=== PATIENT | male | born 1955 | race Caucasian/White ===

== ENCOUNTER → 2020-12-11 | Outpatient (CLI) | payer OTHER ==
[~2020-12-11] MED LIST: E-Z-GAS II EFFERVESCENT PACKET (SODIUM BICARB./CITRIC ACID/SIMETHICONE) As Ordered ONE; E-Z-HD 98% w/w 340GM SUSP BTL As Ordered ONE; E-Z-PAQUE 96% w/w SUSP 176GM BTL As Ordered ONE; ISOVUE-370 76% 100ML VIAL As Ordered ONE
--- NOTE | 2020-12-11 10:30 | REPVR ---
PROCEDURE INFORMATION: Exam: CT Neck With Contrast Exam date and time: 12/11/2020 9:51 AM Age: 65 years old Clinical indication: Other: Dysphonia; Additional info: Dysphonia- x-ray after TECHNIQUE: Imaging protocol: Computed tomography images of the neck with contrast. Radiation optimization: All CT scans at this facility use at least one of these dose optimization techniques: automated exposure control; mA and/or kV adjustment per patient size (includes targeted exams where dose is matched to clinical indication); or iterative reconstruction. Contrast material: ISOVUE 370; Contrast volume: 75 ml; Contrast route: INTRAVENOUS (IV); COMPARISON: No relevant prior studies available. FINDINGS: Paranasal sinuses: There is poor distention of the left piriformis sinus. The possibility of a focal mass of the left supraglottic wall measuring about 5 x 12 mm on axial image 47 and more superiorly on coronal image 37 is questioned and direct inspection is recommended. Nasopharynx: Unremarkable. Oropharynx: Unremarkable. No significant tonsillar enlargement. Hypopharynx: Unremarkable. Larynx: See "Paranasal sinuses" finding. Retropharyngeal space: Unremarkable. Submandibular/Parotid glands: Normal. Glands are normal in size. Thyroid: The thyroid gland is normal. Lymph nodes: There are numerous prominent but non-pathologic lymph nodes in the neck. There are no nodes of pathologic dimensions. Trachea: Visualized trachea is unremarkable. Lungs: The visualized portions of the lung apices are normal. The visualized portions of the lung apices are normal. Bones/joints: A right convex spinal curve is observed.There is a flattening of the normal lordosis, related to positioning or spasm. The spine demonstrates moderate degenerative changes at multiple levels. There is compromise of the left neural foramen at C3-C4 and at C4-C5 with bilateral foraminal compromise at C5-C6. Vasculature: The range of this study has not extended below the aortic arch to completely evaluate for left vagal or recurrent laryngeal nerve compression. The right side is included and demonstrates no impingement. Soft tissues: There is no evidence of mass involving the cords. There is mild calcification of the left internal carotid origin with less than 50% compromise of the lumen. There is mild calcification of the right internal carotid origin with less than 50% compromise of the lumen. IMPRESSION: 1. There is poor distention of the left piriformis sinus. The possibility of a focal mass of the left supraglottic wall measuring about 5 x 12 mm on axial image 47 and more superiorly on coronal image 37 is questioned and direct inspection is recommended. 2. There is no evidence of mass involving the cords. 3. A right convex spinal curve is observed.There is a flattening of the normal lordosis, related to positioning or spasm. 4. The spine demonstrates moderate degenerative changes at multiple levels. There is compromise of the left neural foramen at C3-C4 and at C4-C5 with bilateral foraminal compromise at C5-C6. 5. The range of this study has not extended below the aortic arch to completely evaluate for left vagal or recurrent laryngeal nerve compression. The right side is included and demonstrates no impingement. 6. There is mild calcification of the left internal carotid origin with less than 50% compromise of the lumen. 7. There is mild calcification of the right internal carotid origin with less than 50% compromise of the lumen. 8. There are codominant vertebral arteries with no stenosis or dissection. Electronically signed by: Pascual Crandall On 12/11/2020 10:30:12 AM
--- NOTE | 2020-12-11 15:28 | REP ---
INDICATION: DYSPHONIA- CT FIRST. COMPARISON: None TECHNIQUE: This procedure was performed by Mary Perrin, [facility], under the direct supervision of Dr. Mak. Images were reviewed with Dr. Mak prior to dictation. Liquid barium and gas producing crystals were given in the erect position, as well as liquid barium in the prone oblique position in order to perform a double contrast esophagram examination. FINDINGS: A single view PA chest x-ray is submitted as a weatherseal technician film. The superior mediastinal structures are midline. The heart size is within normal limits. The lungs are clear. The oral and pharyngeal stages of deglutition were unremarkable. Hyperplasia of the cricopharyngeal muscle is visualized. Esophageal transport is prompt and efficient and there is no evidence of esophagitis, stricture, or mucosal ring. There is no evidence of a hiatal hernia. No gastroesophageal reflux was visualized on today's exam. IMPRESSION: Cricopharyngeal hyperplasia, otherwise unremarkable esophagram. 0.5 minutes of fluoroscopy time was utilized for this procedure. Some fluoroscopic images are performed with last image hold technology. These images require no additional radiation. <Electronically signed by Mary Perrin > 12/11/20 [id number] <Electronically signed by Cesar Mak > 12/11/20 [id number]
== END ==
LOC: M RAD 09:23
PROVIDERS: ATTEND Otolaryngology
DX: R49.0 Dysphonia (principal); K22.8 Other specified diseases of esophagus
CPT/HCPCS: 70491; 74220; Q9967

== ENCOUNTER → 2021-01-25 | Outpatient (CLI) | payer OTHER ==
--- NOTE | 2021-01-25 11:00 | REP ---
INDICATION: COUGH / NICOTINE DEPEND. COMPARISON: None. TECHNIQUE: Axial noncontrast images from the thoracic inlet to the upper abdomen using low-dose lung screening technique (LDCT). As per the protocol only lung window images were sent to the read station for interpretation. FINDINGS: In the lateral basal segment of the left lower lobe there is a 6 mm sized pleural base nodule. No other abnormal nodules, masses, or opacities are present. Grossly, the mediastinum and pulmonary savanna are within normal limits. Grossly, the imaged upper abdomen and imaged osseous structures are within normal limits. IMPRESSION: 6 mm sized pulmonary nodule in the left lower lobe as described above. According to the revised Fleischner society criteria this represents a lung rads category 3 nodule for which a six-month follow-up CT is recommended. <Electronically signed by Meño Mac > 01/25/21 [id number]
--- NOTE | 2021-01-25 11:41 | PFTRPT ---
Site: [facility], [address] [place] [address], [id number] ID: [id number] Name: ELA CASTANO Visit Date: 01/25/2021 Second ID: [id number] Referring Doctor: NANCY Cosme Marcus, M Reviewing Doctor: Stone Vilchis MD Gerentological Physiotherapist: Padmini FISHER RRT Age: 65 : 1955 Sex: Male Race: Height: 70.00 Inches Weight: 170.00 Lbs BSA: 1.95 Order IDs: [id number] Requested Test(s): <RESP-PFT.PFT B/A> Diagnosis: R05 test meet the ATS standards for acceptability and repeatability. Pt was given four puffs of albuterol for post bronchodilator. Review Status: Not Reviewed Pre-Bronch Post-Bronch Pred Actual %Pred Actual %Chng SPIROMETRY FVC (L) 4.63 3.57 77 3.61 1 FEV1 (L) 3.46 2.77 80 2.91 4 FEV1/FVC (%) 75 78 103 81 3 FEF 25% (L/sec) 7.00 7.09 101 7.92 11 FEF 50% (L/sec) 4.10 4.33 105 4.95 14 FEF 75% (L/sec) 1.26 0.76 60 1.03 35 FEF 25-75% (L/sec) 2.76 2.42 87 3.03 25 FEF Max (L/sec) 8.89 8.01 90 9.03 12 FIVC (L) 3.57 3.64 1 FIF 50% (L/sec) 4.61 4.39 95 4.59 4 FIF Max (L/sec) 4.90 5.29 7 MVV (L/min) 135 122 90 Expiratory Time (sec) 6.63 6.50 -1 Back Extrap Vol (L) 0.15 0.12 -23 Time To FEFmax (sec) 0.133 0.088 -33 LUNG VOLUMES SVC (L) 4.68 3.66 78 IC (L) 3.33 3.09 92 ERV (L) 1.35 0.57 42 TGV (L) 3.68 3.53 96 RV (Pleth) (L) 2.33 2.96 127 TLC (Pleth) (L) 7.01 6.62 94 RV/TLC (Pleth) (%) 34 45 131 DIFFUSION DLCOunc (ml/min/mmHg) 27.46 24.19 88 DLCOcor (ml/min/mmHg) 27.46 24.32 88 DL/VA (ml/min/mmHg/L) 3.92 4.31 110 VA (L) 7.01 5.64 80 BHT (sec) 9.89 IVC (L) 3.65 TLC (SB) (L) 5.79 AIRWAYS RESISTANCE Raw (cmH2O/L/s) 1.45 0.61 42 Gaw (L/s/cmH2O) 1.03 1.65 160 sRaw (cmH2O*s) 4.76 2.18 45 sGaw (1/cmH2O*s) 0.20 0.46 231 BLOOD GASES Hgb (gm/dL) 14.4
== END ==
LOC: M CARPUL 10:25
PROVIDERS: ATTEND Physician Assistant
DX: Z12.2 Encounter for screening for malignant neoplasm of respiratory organs (principal); R91.8 Other nonspecific abnormal finding of lung field; R05 Cough; Z87.891 Personal history of nicotine dependence

== ENCOUNTER → 2021-02-20 | Outpatient (CLI) | payer OTHER ==
[~2021-02-20] MED LIST changes: +AKWASOL; +CARA1TAB6 PO; +D31000TA2 PO; -E-Z-GAS II EFFERVESCENT PACKET (SODIUM BICARB./CITRIC ACID/SIMETHICONE) As Ordered ONE; -E-Z-HD 98% w/w 340GM SUSP BTL As Ordered ONE; -E-Z-PAQUE 96% w/w SUSP 176GM BTL As Ordered ONE; +FAMO1TAB11 PO; +FENO48TA8; -ISOVUE-370 76% 100ML VIAL As Ordered ONE; +LORA-930; +MELO15TA28; +METH-1164; +MULT-90 PO; +PANT20TA6; +REST0.05
--- NOTE | 2021-02-24 16:36 | ECGEPIP ---
[facility] Test Date: 2021-02-20 Pat Name: ELA CASTANO Department: Room: - Gender: Male Senior Project Coordinator: artemio : 1955 Requested By: REX Chin Order Number: [id number] Reading MD: Jose Alfredo Vale Measurements Intervals [place] Rate: 84 P: 55 [place]: 208 QRS: -22 QRSD: 84 T: 41 QT: 360 QTc: 425 Interpretive Statements Normal sinus rhythm BORDERLINE LEFT AXIS DEVIATION No prior tracing in the system Electronically Signed on 02-24-2021 16:35:42 EDT by Jose Alfredo Vale
== END ==
LOC: M EKG 15:21
PROVIDERS: ATTEND Anesthesiology
DX: Z01.818 Encounter for other preprocedural examination (principal); R94.31 Abnormal electrocardiogram [ECG] [EKG]; E78.5 Hyperlipidemia, unspecified; M19.90 Unspecified osteoarthritis, unspecified site
CPT/HCPCS: 93005; G0463

== ENCOUNTER 2021-02-27 08:04 | Day surgery (SDC) | payer OTHER ==
[~2021-02-27] VITALS: Ht 177.8 cm; Wt 84.4 kg
[~2021-02-27 08:04] MED LIST changes: -CARA1TAB6 PO; +LIDOCAINE 1% MDV 20ML VIAL SQ PRN; +LR 1,000 ML IV ONE
[2021-02-27] MEDS ORDERED: CARA1TAB6 PO (08:19)
[2021-02-27] MEDS ORDERED: fentaNYL 100 MCG/2 ML INJECTION (J3010) As Ordered ONE (08:25)
[2021-02-27] MEDS ORDERED: MIDAZOLAM INJ 2MG/2ML VIAL (J2250 PER 1MG) As Ordered ONE (08:26)
[2021-02-27] MEDS ORDERED: dexameTHASONE 4 MG/ML 1ML VIAL (J1100 PER 1MG) As Ordered ONE (08:26)
[2021-02-27] MEDS ORDERED: propofoL 200 MG/20 ML VIAL As Ordered ONE (08:26)
[2021-02-27] MEDS ORDERED: ROCURONIUM BROMIDE 50 MG/5 ML VIAL As Ordered ONE (08:26)
[2021-02-27] MEDS ORDERED: LIDOCAINE 2% 100MG/5ML SDV (FOR ANES.) As Ordered ONE (08:26)
[2021-02-27] MEDS ORDERED: ONDANSETRON 4MG/2ML VIAL As Ordered ONE (08:26)
[2021-02-27] MEDS ORDERED: METHYLENE BLUE 0.5% (5MG/ML) 10 ML AMP (PROVAYBLUE) As Ordered ONE (10:14)
[2021-02-27] MEDS ORDERED: LIDOCAINE W/EPINEPHRINE 1% 20ML VIAL As Ordered ONE (10:15)
[2021-02-27] MEDS ORDERED: OXYMETAZOLINE 0.05% NASAL SPRAY (AFRIN) As Ordered ONE (10:15)
[2021-02-27] MEDS ORDERED: SUGAMMADEX SODIUM 500 MG/5 ML VIAL (BRIDION) As Ordered ONE (11:04)
[2021-02-27] MEDS ORDERED: ePHEDrine SULFATE 25 MG/5 ML(5MG/ML) SYRINGE As Ordered ONE (11:24)
[2021-02-27] MEDS ORDERED: METOCLOPRAMIDE INJ 10MG/2ML VIAL (J2765 PER 1) IV PRN (12:25)
[2021-02-27] MEDS ORDERED: fentaNYL 100 MCG/2 ML INJECTION (J3010) IV PRN (12:25)
[2021-02-27] MEDS ORDERED: ONDANSETRON 4MG/2ML VIAL IV PRN (12:25)
[2021-02-27] MEDS ORDERED: LR 1,000 ML IV SCH ×2 (12:25)
[2021-02-27] MEDS ORDERED: oxyCODONE 5MG TAB PO PRN (12:25)
[2021-02-27 13:10] VITALS: BP 157/83
--- NOTE | 2021-02-27 18:05 | RO ---
OPERATIVE NOTE DATE OF OPERATION: 02/27/2021 PREOPERATIVE DIAGNOSIS: Cough, dysphonia and fullness of the left piriform sinus. POSTOPERATIVE DIAGNOSIS: Cough, dysphonia and fullness of the left piriform sinus. PROCEDURE PERFORMED: Direct suspension microlaryngoscopy with biopsy of the left piriform sinus. 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 CT of neck revealed fullness of the left piriform sinus. Management options including surgery listed above have been discussed. The patient understood and consented to the procedure. OR NARRATION: The patient was identified in preholding and brought to the operating room in stable condition. In supine position on the operating table, the patient received general anesthesia followed by orotracheal intubation without incident. The patient was prepped and draped in the usual fashion for the procedure. Bimanual palpation of the oral cavity, oral tongue, base of tongue, lateral posterior pharyngeal wall showed no evidence of discrete mass lesions. The upper alveolus was protected using the dental guard. The Dedo-Pilling laryngoscope was the introduced to allow inspection of the mucosa of the oral cavity, oropharynx, oral tongue, base of tongue, lateral and posterior pharyngeal wall, supraglottis and hypopharynx. There was no evidence of mucosal lesion seen. Redundant mucosa was noted in the left piriform sinus. Both vocal cords appeared to be free of recurrent polyp. The Dedo-Pilling laryngoscope was suspended on the Crenshaw stand to allow visualization of the left piriform sinus. Biopsies were taken from the left piriform sinus. Hemostasis was achieved using pledgets soaked in Afrin solution. At the end of the procedure, sponge and instrument counts were correct. No complications were encountered. Estimated blood loss was less than 1 mL. General anesthesia was reversed and the patient was extubated and brought to the recovery room in stable condition.
== END 2021-02-27 13:22 | disposition home or self-care (01) ==
LOC: M SDC 08:04
PROVIDERS: ATTEND Otolaryngology
DX: J34.89 Other specified disorders of nose and nasal sinuses (principal); R05.9 Cough, unspecified; R49.0 Dysphonia; E78.9 Disorder of lipoprotein metabolism, unspecified; K21.9 Gastro-esophageal reflux disease without esophagitis; K57.90 Diverticulosis of intestine, part unspecified, without perforation or abscess without bleeding; M19.90 Unspecified osteoarthritis, unspecified site; Z91.041 Radiographic dye allergy status; Z91.030 Bee allergy status; Z88.8 Allergy status to other drugs, medicaments and biological substances; Z79.899 Other long term (current) drug therapy
CPT/HCPCS: 31536; 88305; J1100; J2250; J2405; J3010; Q9968

== ENCOUNTER → 2021-03-27 | Outpatient (CLI) | payer OTHER ==
[~2021-03-27] MED LIST changes: +CARA1TAB6 PO; -LIDOCAINE 1% MDV 20ML VIAL SQ PRN; -LR 1,000 ML IV ONE; +METHACHOLINE KIT (J7674) INH ONE
== END ==
LOC: M CARPUL 08:45
PROVIDERS: ATTEND Physician Assistant
DX: R05.9 Cough, unspecified (principal)
CPT/HCPCS: 94070; 95070; J7674

== ENCOUNTER → 2021-04-19 | Outpatient (CLI) | payer OTHER ==
[~2021-04-19] MED LIST changes: -METHACHOLINE KIT (J7674) INH ONE
== END ==
LOC: M PAIN 09:00
PROVIDERS: ATTEND Anesthesiology
DX: M54.2 Cervicalgia (principal); M79.18 Myalgia, other site; M47.812 Spondylosis without myelopathy or radiculopathy, cervical region; E78.2 Mixed hyperlipidemia; K58.9 Irritable bowel syndrome, unspecified; F41.9 Anxiety disorder, unspecified; K21.9 Gastro-esophageal reflux disease without esophagitis; E55.9 Vitamin D deficiency, unspecified; M72.0 Palmar fascial fibromatosis [Dupuytren]; Z79.899 Other long term (current) drug therapy

== ENCOUNTER → 2021-05-07 | Outpatient (REF) | payer OTHER | LOC: M LAB REF 17:13 | PROVIDERS: ATTEND Physician Assistant | DX: R05.9 Cough, unspecified (principal) ==

== ENCOUNTER → 2021-06-28 | Outpatient (REF) | payer OTHER ==
[~2021-06-28] MED LIST changes: -D31000TA2 PO; +VITA100093 PO
== END ==
LOC: M LAB REF 16:49
PROVIDERS: ATTEND Physician Assistant
DX: R05.9 Cough, unspecified (principal)

== ENCOUNTER 2021-07-20 09:58 | Day surgery (SDC) | payer OTHER ==
[~2021-07-20] VITALS: Ht 177.8 cm; Wt 84.4 kg
[~2021-07-20 09:58] MED LIST changes: +LIDOCAINE 2% 100MG/5ML SDV (FOR ANES.) As Ordered ONE; +NS 1,000 ML IV ONE; +fentaNYL 100 MCG/2 ML INJECTION As Ordered ONE; +propofoL 200 MG/20 ML VIAL As Ordered ONE
[2021-07-20 14:10] VITALS: BP 120/82
== END 2021-07-20 14:12 | disposition home or self-care (01) ==
LOC: M OPP 09:58
PROVIDERS: ATTEND Internal Medicine Gastroenterology
DX: K29.70 Gastritis, unspecified, without bleeding (principal); Z79.899 Other long term (current) drug therapy; Z91.030 Bee allergy status; Z91.041 Radiographic dye allergy status; Z88.8 Allergy status to other drugs, medicaments and biological substances; Z87.891 Personal history of nicotine dependence; R91.8 Other nonspecific abnormal finding of lung field
CPT/HCPCS: 43239; 71250; 88305; J3010

== ENCOUNTER → 2021-07-20 | Outpatient (CLI) | payer OTHER ==
[~2021-07-20] MED LIST changes: +CELLOPD OU; +FLUO1OPD OU
== END ==
LOC: M RAD 08:46
PROVIDERS: ATTEND Physician Assistant
DX: R91.8 Other nonspecific abnormal finding of lung field (principal)

== ENCOUNTER → 2021-10-08 | Outpatient (CLI) | payer OTHER ==
[~2021-10-08] MED LIST changes: +BUPIVACAINE HCL 0.25% 10ML VIAL As Ordered ONE; +BUPIVACAINE HCL 0.25% 30ML VIAL As Ordered ONE; -LIDOCAINE 2% 100MG/5ML SDV (FOR ANES.) As Ordered ONE; +NORCO, ANEXSIA 5/325MG TABLET (HYDROcodone/ACETAMINOPHEN) As Ordered ONE; -NS 1,000 ML IV ONE; +TRIAMCINOLONE ACETONIDE SUSP 40 MG/ML VIAL (J3301) As Ordered ONE; +diazePAM 2 MG TAB As Ordered ONE; -fentaNYL 100 MCG/2 ML INJECTION As Ordered ONE; -propofoL 200 MG/20 ML VIAL As Ordered ONE
== END ==
LOC: M PAIN 13:20
PROVIDERS: ATTEND Anesthesiology
DX: M79.18 Myalgia, other site (principal); Z86.59 Personal history of other mental and behavioral disorders; Z87.891 Personal history of nicotine dependence; Z91.030 Bee allergy status; Z91.041 Radiographic dye allergy status; Z79.899 Other long term (current) drug therapy
CPT/HCPCS: 20552; J3301

== ENCOUNTER → 2021-12-13 | Outpatient (CLI) | payer OTHER ==
[~2021-12-13] MED LIST changes: -BUPIVACAINE HCL 0.25% 10ML VIAL As Ordered ONE; -BUPIVACAINE HCL 0.25% 30ML VIAL As Ordered ONE; -NORCO, ANEXSIA 5/325MG TABLET (HYDROcodone/ACETAMINOPHEN) As Ordered ONE; -TRIAMCINOLONE ACETONIDE SUSP 40 MG/ML VIAL (J3301) As Ordered ONE; -diazePAM 2 MG TAB As Ordered ONE
== END ==
LOC: M PAIN 14:30
PROVIDERS: ATTEND Nurse Practitioner Family
DX: M79.18 Myalgia, other site (principal); G89.4 Chronic pain syndrome; E78.2 Mixed hyperlipidemia; K58.9 Irritable bowel syndrome, unspecified; M54.2 Cervicalgia; F41.9 Anxiety disorder, unspecified; K21.9 Gastro-esophageal reflux disease without esophagitis; E55.9 Vitamin D deficiency, unspecified; M25.562 Pain in left knee; M72.0 Palmar fascial fibromatosis [Dupuytren]; Z87.891 Personal history of nicotine dependence; B00.9 Herpesviral infection, unspecified; N48.6 Induration penis plastica; Z79.899 Other long term (current) drug therapy; Z91.041 Radiographic dye allergy status; Z91.030 Bee allergy status

== ENCOUNTER → 2022-01-10 | Day surgery (SDC) | payer OTHER ==
[~2022-01-10] VITALS: Ht 177.8 cm; Wt 82.0 kg
[~2022-01-10] MED LIST changes: +C 50TAB PO; +FAMO20TA PO; +NS 1,000 ML IV ONE; +REST0.05 OU
[2022-01-10 12:10] VITALS: BP 175/92
== END | disposition home or self-care (01) ==
LOC: M OPP 08:44
PROVIDERS: ATTEND Internal Medicine Gastroenterology
DX: Z12.11 Encounter for screening for malignant neoplasm of colon (principal); Z86.010 Personal history of colon polyps; K63.5 Polyp of colon; K57.30 Diverticulosis of large intestine without perforation or abscess without bleeding; K64.4 Residual hemorrhoidal skin tags; K64.8 Other hemorrhoids; K29.70 Gastritis, unspecified, without bleeding; Z79.899 Other long term (current) drug therapy; Z88.8 Allergy status to other drugs, medicaments and biological substances; Z91.030 Bee allergy status; Z91.041 Radiographic dye allergy status; Z87.19 Personal history of other diseases of the digestive system; R91.1 Solitary pulmonary nodule

== ENCOUNTER → 2022-01-14 | Outpatient (CLI) | payer OTHER ==
[~2022-01-14] MED LIST changes: -NS 1,000 ML IV ONE
== END ==
LOC: M RAD 08:08
PROVIDERS: ATTEND Physician Assistant
DX: R91.8 Other nonspecific abnormal finding of lung field (principal)

== ENCOUNTER → 2022-01-29 | Outpatient (CLI) | payer OTHER ==
[2022-01-29 11:27] LABS: BASO % 0.6 % (0.0-1.0); EOS # 0.1 10^3/uL (0.0-0.5); EOS % 1.9 % (0.0-3.0); HEMOGLOBIN 14.7 g/dl (13.5-17.5); LYMPH # 2.2 10^3/uL (1.5-5.0); LYMPH % 30.9 % (24.0-44.0); MEAN CORPUSCULAR HEMOGLOBIN 30.8 pg (27.0-33.0); MEAN CORPUSCULAR HGB CONC 32.7 g/dl (32.0-36.5); MEAN CORPUSCULAR VOLUME 94.1 fl (80.0-96.0); MONO # 0.6 10^3/uL (0.0-0.8); MONO % 8.3 % (2.0-8.0); NEUTROPHILS # 4.1 10^3/uL (1.5-8.5); PLATELET COUNT, AUTOMATED 253 10^3/uL (150-450); RED BLOOD COUNT 4.78 10^6/uL (4.30-6.10)
[2022-01-29 12:09] LABS: ALBUMIN 3.7 GM/DL (3.2-5.2); ALT/SGPT 31 U/L (12-78); BILIRUBIN,TOTAL 0.5 MG/DL (0.2-1.0); BLOOD UREA NITROGEN 18 MG/DL (7-18); CALCIUM LEVEL 8.9 MG/DL (8.8-10.2); CARBON DIOXIDE LEVEL 29 MEQ/L (21-32); CHLORIDE LEVEL 106 MEQ/L (98-107); CREATININE FOR GFR 1.03 MG/DL (0.70-1.30); GLOMERULAR FILTRATION RATE > 60.0 (>49); GLUCOSE, FASTING 89 MG/DL (70-100); POTASSIUM SERUM 4.5 MEQ/L (3.5-5.1); RHEUMATOID FACTOR QUANT < 10.0 IU/ML (<15.0); SODIUM LEVEL 138 MEQ/L (136-145); TOTAL PROTEIN 7.1 GM/DL (6.4-8.2); URIC ACID 5.8 MG/DL (3.5-7.2)
[2022-01-29 12:22] LABS: ERYTHROCYTE SEDIMENTATION RATE 3 mm/hr (0-20)
[2022-02-07 17:10] LABS: ANA (HEP2) Negative (.); CYCLIC CITRULLINATED PEPTIDE 4 units (0-19); HLA-B27 Negative (.)
== END ==
LOC: M LAB 10:33
PROVIDERS: ATTEND Nurse Practitioner Family
DX: L85.3 Xerosis cutis (principal); Z79.899 Other long term (current) drug therapy

== ENCOUNTER → 2022-01-31 | Outpatient (CLI) | payer OTHER | LOC: M PAIN 10:00 | PROVIDERS: ATTEND Nurse Practitioner Family | DX: M79.18 Myalgia, other site (principal); E78.2 Mixed hyperlipidemia; K58.9 Irritable bowel syndrome, unspecified; M54.2 Cervicalgia; F41.9 Anxiety disorder, unspecified; K21.9 Gastro-esophageal reflux disease without esophagitis; E55.9 Vitamin D deficiency, unspecified; N48.6 Induration penis plastica; M25.562 Pain in left knee; M72.0 Palmar fascial fibromatosis [Dupuytren]; B00.9 Herpesviral infection, unspecified; Z87.891 Personal history of nicotine dependence; Z79.899 Other long term (current) drug therapy; Z88.8 Allergy status to other drugs, medicaments and biological substances; Z91.030 Bee allergy status ==

== ENCOUNTER → 2022-01-31 | Outpatient (REF) | payer OTHER | LOC: M LAB REF 17:02 | PROVIDERS: ATTEND Physician Assistant | DX: R05.9 Cough, unspecified (principal) ==

== ENCOUNTER → 2022-02-12 | Outpatient (REF) | payer OTHER | LOC: M SFHCDERM 17:25 | PROVIDERS: ATTEND Nurse Practitioner Family | DX: R21 Rash and other nonspecific skin eruption (principal) ==

== ENCOUNTER → 2022-02-22 | Outpatient (REF) | payer OTHER | LOC: M LAB REF 15:25 | PROVIDERS: ATTEND Internal Medicine Pulmonary Disease | DX: R05.9 Cough, unspecified (principal) ==

== ENCOUNTER → 2022-03-18 | Outpatient (CLI) | payer OTHER | LOC: M RAD 08:12 | PROVIDERS: ATTEND Otolaryngology | DX: J31.0 Chronic rhinitis (principal); J34.2 Deviated nasal septum ==

== ENCOUNTER → 2022-04-11 | Outpatient (CLI) | payer OTHER ==
[~2022-04-11] MED LIST changes: +BUPIVACAINE HCL 0.25% 10ML VIAL As Ordered ONE; +BUPIVACAINE HCL 0.25% 30ML VIAL As Ordered ONE; +NORCO, ANEXSIA 5/325MG TABLET (HYDROcodone/ACETAMINOPHEN) As Ordered ONE; +TRIAMCINOLONE ACETONIDE SUSP 40MG/ML 1ML VIAL As Ordered ONE
== END ==
LOC: M PAIN 15:00
PROVIDERS: ATTEND Anesthesiology
DX: M79.12 Myalgia of auxiliary muscles, head and neck (principal); E78.2 Mixed hyperlipidemia; K58.9 Irritable bowel syndrome, unspecified; M54.2 Cervicalgia; F41.9 Anxiety disorder, unspecified; K21.9 Gastro-esophageal reflux disease without esophagitis; E55.9 Vitamin D deficiency, unspecified; N48.6 Induration penis plastica; M25.562 Pain in left knee; J31.2 Chronic pharyngitis; M72.0 Palmar fascial fibromatosis [Dupuytren]; R03.0 Elevated blood-pressure reading, without diagnosis of hypertension; Z87.891 Personal history of nicotine dependence; Z79.899 Other long term (current) drug therapy; Z91.030 Bee allergy status; Z91.041 Radiographic dye allergy status
CPT/HCPCS: 20552; J3301

== ENCOUNTER → 2022-05-14 | Outpatient (CLI) | payer OTHER ==
[~2022-05-14] MED LIST changes: -BUPIVACAINE HCL 0.25% 10ML VIAL As Ordered ONE; -BUPIVACAINE HCL 0.25% 30ML VIAL As Ordered ONE; -NORCO, ANEXSIA 5/325MG TABLET (HYDROcodone/ACETAMINOPHEN) As Ordered ONE; -TRIAMCINOLONE ACETONIDE SUSP 40MG/ML 1ML VIAL As Ordered ONE
== END ==
LOC: M PAIN 11:30
PROVIDERS: ATTEND Nurse Practitioner Family
DX: G89.29 Other chronic pain (principal); M79.10 Myalgia, unspecified site; E55.9 Vitamin D deficiency, unspecified; Z86.59 Personal history of other mental and behavioral disorders; Z87.891 Personal history of nicotine dependence; Z91.030 Bee allergy status; Z91.041 Radiographic dye allergy status; Z79.899 Other long term (current) drug therapy

== ENCOUNTER → 2022-08-28 | Outpatient (CLI) | payer MEDICARE, OTHER ==
[~2022-08-28] MED LIST changes: -AKWASOL; +ARTIDRO2
[2022-08-28 13:24] LABS: BASO % 0.6 % (0.0-1.0); EOS # 0.1 10^3/uL (0.0-0.5); EOS % 1.7 % (0.0-3.0); HEMATOCRIT 46.3 % (42.0-52.0); HEMOGLOBIN 15.1 g/dl (13.5-17.5); LYMPH # 2.3 10^3/uL (1.5-5.0); LYMPH % 35.8 % (24.0-44.0); MEAN CORPUSCULAR HEMOGLOBIN 30.8 pg (27.0-33.0); MEAN CORPUSCULAR HGB CONC 32.6 g/dl (32.0-36.5); MEAN CORPUSCULAR VOLUME 94.5 fl (80.0-96.0); MONO # 0.5 10^3/uL (0.0-0.8); MONO % 8.2 % (2.0-8.0); NEUTROPHILS # 3.4 10^3/uL (1.5-8.5); NEUTROPHILS % 53.2 % (36.0-66.0); PLATELET COUNT, AUTOMATED 258 10^3/uL (150-450); WHITE BLOOD COUNT 6.5 10^3/uL (4.0-10.0)
[2022-08-28 13:41] LABS: ERYTHROCYTE SEDIMENTATION RATE 6 mm/hr (0-20)
[2022-08-28 13:55] LABS: URIC ACID 7.1 MG/DL (3.7-9.2)
[2022-08-28 13:57] LABS: C REACTIVE PROTEIN QUANTITATIV < 0.40 MG/DL (<1.0)
[2022-08-28 13:59] LABS: ALBUMIN 3.9 G/DL (3.2-5.2); ALKALINE PHOSPHATASE 49 U/L (46-116); ALT/SGPT 25 U/L (7.0-40); AST/SGOT 16 U/L (<34); BILIRUBIN,TOTAL 0.6 MG/DL (0.3-1.2); BLOOD UREA NITROGEN 16 MG/DL (9-23); CALCIUM LEVEL 9.2 MG/DL (8.3-10.6); CARBON DIOXIDE LEVEL 29 MMOL/L (20-31); CHLORIDE LEVEL 105 MMOL/L (98-107); CREATININE FOR GFR 1.01 MG/DL (0.70-1.30); GLOMERULAR FILTRATION RATE > 60.0 (>49); GLUCOSE, FASTING 82 MG/DL (74-106); POTASSIUM SERUM 4.5 MMOL/L (3.5-5.1); RHEUMATOID FACTOR QUANT 8.4 IU/ML (<14); SODIUM LEVEL 140 MMOL/L (136-145); TOTAL PROTEIN 6.6 G/DL (5.7-8.2)
[2022-08-29 23:07] LABS: ANA (HEP2) Negative (.); CYCLIC CITRULLINATED PEPTIDE 4 units (0-19)
== END ==
LOC: M LAB 11:44
PROVIDERS: ATTEND Otolaryngology
DX: J31.0 Chronic rhinitis (principal)

== ENCOUNTER → 2022-09-05 | Outpatient (REF) | payer OTHER | LOC: M SFHCRHEU 13:31 | PROVIDERS: ATTEND Internal Medicine Rheumatology | DX: M35.00 Sjogren syndrome, unspecified (principal); M25.50 Pain in unspecified joint; E79.0 Hyperuricemia without signs of inflammatory arthritis and tophaceous disease ==

== ENCOUNTER → 2022-11-04 | Day surgery (SDC) | payer MEDICARE, OTHER ==
[~2022-11-04] VITALS: Ht 177.8 cm; Wt 86.5 kg
[~2022-11-04] MED LIST changes: +CEQU0.09 OU; +LIDOCAINE 2% 100MG/5ML SDV (FOR ANES.) As Ordered ONE; +NS 1,000 ML IV ONE; +fentaNYL 100 MCG/2 ML INJECTION As Ordered ONE; +propofoL 200 MG/20 ML VIAL As Ordered ONE
[2022-11-04 14:24] VITALS: TEMP 97.7
[2022-11-04 14:48] VITALS: BP 134/65; O2SAT 97
== END | disposition home or self-care (01) ==
LOC: M OPP 11:57
PROVIDERS: ATTEND Internal Medicine Gastroenterology
DX: K31.89 Other diseases of stomach and duodenum (principal); K20.90 Esophagitis, unspecified without bleeding; Z87.891 Personal history of nicotine dependence; Z79.899 Other long term (current) drug therapy; Z88.3 Allergy status to other anti-infective agents; Z91.030 Bee allergy status; Z91.040 Latex allergy status
CPT/HCPCS: 43239; 88305; 91035; J3010

== ENCOUNTER → 2023-08-05 | Outpatient (REF) | payer MEDICARE, OTHER ==
[~2023-08-05] MED LIST changes: -LIDOCAINE 2% 100MG/5ML SDV (FOR ANES.) As Ordered ONE; -NS 1,000 ML IV ONE; -fentaNYL 100 MCG/2 ML INJECTION As Ordered ONE; -propofoL 200 MG/20 ML VIAL As Ordered ONE
== END ==
LOC: M LAB REF 12:09
PROVIDERS: ATTEND Internal Medicine Pulmonary Disease
DX: R05.3 Chronic cough (principal)

== ENCOUNTER → 2023-08-15 | Outpatient (CLI) | payer OTHER, MEDICARE ==
[~2023-08-15] MED LIST changes: +GASTROGRAFIN SOLUTION 30ML As Ordered ONE; +ISOVUE-370 76% 100ML VIAL As Ordered ONE
== END ==
LOC: M RAD 12:09
PROVIDERS: ATTEND Internal Medicine Gastroenterology
DX: I70.0 Atherosclerosis of aorta (principal); Z90.49 Acquired absence of other specified parts of digestive tract
CPT/HCPCS: 74160; Q9963; Q9967

== ENCOUNTER 2024-01-06 07:43 | Day surgery (SDC) | payer MEDICARE, OTHER ==
[~2024-01-06] VITALS: Ht 177.8 cm; Wt 84.4 kg
[~2024-01-06 07:43] MED LIST changes: -GASTROGRAFIN SOLUTION 30ML As Ordered ONE; -ISOVUE-370 76% 100ML VIAL As Ordered ONE; +NS 1,000 ML IV ONE; +OMEP-173 PO; +PANT20TA6 PO; +ROSU20TA61 PO; +SYST1SOL OU; +TUMS500C PO
[2024-01-06] MEDS ORDERED: fentaNYL 100 MCG/2 ML INJECTION As Ordered ONE (08:42)
[2024-01-06] MEDS ORDERED: LIDOCAINE 2% 100MG/5ML SDV (FOR ANES.) As Ordered ONE (09:04)
[2024-01-06] MEDS ORDERED: propofoL 200 MG/20 ML VIAL As Ordered ONE (09:04)
[2024-01-06 09:15] VITALS: TEMP 97
[2024-01-06 09:29] VITALS: BP 136/75; O2SAT 95
== END 2024-01-06 09:50 | disposition home or self-care (01) ==
LOC: M OPP 07:43
PROVIDERS: ATTEND Surgery
DX: K44.9 Diaphragmatic hernia without obstruction or gangrene (principal); K31.7 Polyp of stomach and duodenum; R12 Heartburn; Z87.891 Personal history of nicotine dependence; Z88.8 Allergy status to other drugs, medicaments and biological substances; Z91.030 Bee allergy status; Z91.041 Radiographic dye allergy status
CPT/HCPCS: 43239; 88305; 91035; J3010

== ENCOUNTER → 2025-04-05 | Outpatient (REF) | payer MEDICARE, OTHER ==
[~2025-04-05] MED LIST changes: -NS 1,000 ML IV ONE; -ROSU20TA61 PO; +ROSU20TA86 PO
== END ==
LOC: M LAB REF 17:05
PROVIDERS: ATTEND Internal Medicine Pulmonary Disease
DX: J45.20 Mild intermittent asthma, uncomplicated (principal)